=== PATIENT | male | born 1980 | race Caucasian/White ===

== ENCOUNTER 2023-09-01 12:10 | Emergency (ER) | payer BC ==
[2023-09-01] MEDS: Sodium Chloride 0.9% 10 ML Syringe FLUSH PRN (13:16)
[2023-09-01] MEDS: Sodium Chloride 0.9% 2.5 ML Syringe FLUSH PRN (13:16)
[2023-09-01] MEDS: Sodium Chloride 0.9% 1,000 ML IV ONE (13:16)
[2023-09-01 13:25] LABS: BASOPHILS ABSOLUTE AUTO 0.04 K/uL (0.00-0.20); BASOPHILS PERCENT AUTO 0.8 % (0.0-1.0); EOSINOPHILS ABSOLUTE AUTO 0.28 K/uL (0.00-0.45); EOSINOPHILS PERCENT AUTO 5.5 % (0.0-6.0); HEMATOCRIT 42.6 % (42.0-52.0); HEMOGLOBIN 14.5 g/dL (14.0-18.0); IMMATURE GRAN ABSOLUTE AUTO 0.01 K/uL (0.00-0.05); IMMATURE GRAN PERCENT AUTO 0.2 % (0.0-0.4); LYMPHOCYTES ABSOLUTE AUTO 1.33 K/uL (1.00-4.80); LYMPHOCYTES PERCENT AUTO 25.9 % (24.0-44.0); MEAN CORPUSCULAR HEMOGLOBIN 29.4 pg (28.0-32.0); MEAN CORPUSCULAR VOLUME 86.2 fL (83.0-99.0); MEAN PLATELET VOLUME 9.9 fL (9.4-12.4); MONOCYTES ABSOLUTE AUTO 0.23 K/uL (0.00-0.80); MONOCYTES PERCENT AUTO 4.5 % (0.0-8.0); NEUTROPHILS ABSOLUTE AUTO 3.24 K/uL (1.80-7.70); NEUTROPHILS PERCENT AUTO 63.1 % (41.0-71.0); PLATELET COUNT,PLT 210 K/uL (150-400); RED BLOOD CELL COUNT 4.94 M/uL (4.52-5.90); WHITE BLOOD CELL COUNT,WBC 5.13 K/uL (3.9-11.3)
[2023-09-01 13:45] LABS: A/G RATIO 1.3 (0.9-1.6); ALBUMIN 4.2 g/dL (3.4-5.0); BILIRUBIN TOTAL 1.2 mg/dL (0.2-1.0); CALCIUM 9.1 mg/dL (8.5-10.1); CARBON DIOXIDE,CO2 27.4 mmol/L (21.0-32.0); CREATININE 0.8 mg/dL (0.8-1.3); EST CRCL DRUG DOSING (CG) 138.43 mL/min; POTASSIUM,K 4.1 mmol/L (3.5-5.1); PROTEIN TOTAL,TP 7.4 g/dL (6.4-8.2)
[2023-09-01 13:48] LABS: INR 1.07 (0.86-1.11); PTT,PARTIAL THROMBOPLSTIN TIME 28.6 SEC (23.9-30.7)
== END 2023-09-01 14:19 | disposition home or self-care (01) ==
LOC: MW.ED 12:10
DX: K64.9 Unspecified hemorrhoids (principal); I10 Essential (primary) hypertension; Z79.899 Other long term (current) drug therapy; Z75.8 Other problems related to medical facilities and other health care
CPT/HCPCS: 36415; 80053; 85025; 85610; 85730; 96360; 99283; J3490; J7030; 99282

== ENCOUNTER 2023-10-11 10:08 | Day surgery (SDC) | payer BC ==
[~2023-10-11 10:08] MED LIST: Lactated Ringers 1,000 ML IV SCH
[2023-10-11] MEDS ORDERED: dexmedeTOMIDine HCl 200 MCG/2 ML SDV IV ONE (10:09)
[2023-10-11] MEDS ORDERED: propofoL 50 ML ONE ×2 (10:54→12:00)
[2023-10-11] MEDS: Lactated Ringers 1,000 ML IV SCH (11:12)
[2023-10-11] MEDS ORDERED: fentaNYL 100 MCG/2 ML SDV ONE (11:55)
[2023-10-11] MEDS ORDERED: Glycopyrrolate 0.2 MG/ML SDV ONE (11:58)
[2023-10-11] MEDS ORDERED: Lactated Ringers 1,000 ML IV SCH (12:30)
== END 2023-10-11 13:00 | disposition home or self-care (01) ==
LOC: MW.SDS 10:08
PROVIDERS: ATTEND Surgery
DX: K62.5 Hemorrhage of anus and rectum (principal); I10 Essential (primary) hypertension; K64.9 Unspecified hemorrhoids; Z79.899 Other long term (current) drug therapy; Z80.0 Family history of malignant neoplasm of digestive organs
CPT/HCPCS: 45378; J2704; J3010; J3490; J7120